=== PATIENT | male | born 1995 | race Caucasian/White ===

== ENCOUNTER 2018-08-17 10:08 | Emergency (ER) | payer OTHER ==
[~2018-08-17] VITALS: Ht 175.3 cm; Wt 120.0 kg
[2018-08-17 10:27] VITALS: BP 141/77
== END 2018-08-17 11:43 | disposition home or self-care (01) ==
LOC: ER 10:08
DX: L02.413 Cutaneous abscess of right upper limb (principal); L03.113 Cellulitis of right upper limb; F17.210 Nicotine dependence, cigarettes, uncomplicated
CPT/HCPCS: 99283

== ENCOUNTER 2018-08-25 11:18 | Emergency (ER) | payer MEDICAID, OTHER ==
[~2018-08-25] VITALS: Ht 177.8 cm; Wt 125.0 kg
[2018-08-25] MEDS ORDERED: IBUPROFEN 800MG TABLET PO ONE (12:15)
[2018-08-25 12:33] VITALS: BP 118/80
== END 2018-08-25 12:33 | disposition home or self-care (01) ==
LOC: ER 11:18
DX: L02.416 Cutaneous abscess of left lower limb (principal); I10 Essential (primary) hypertension; F31.9 Bipolar disorder, unspecified; F17.210 Nicotine dependence, cigarettes, uncomplicated
CPT/HCPCS: 99283